=== PATIENT | female | born 1965 | race Caucasian/White ===

== ENCOUNTER 2022-01-08 08:12 | Emergency (ER) | payer OTHER ==
[~2022-01-08] VITALS: Ht 170.2 cm; Wt 53.5 kg
[2022-01-08 09:23] LABS: BASO # 0.1 x10^3/uL (0.0-0.2); BASO % 1 % (0-3); EOS # 0.4 x10^3/uL (0.0-0.7); EOS % 6 % (0-3); HEMATOCRIT 38.5 % (36.0-47.0); LYMPH # 1.4 x10^3/uL (1.0-4.8); LYMPH % 24 % (24-48); MEAN CORPUSCULAR HEMOGLOBIN 29 pg (25-35); MEAN CORPUSCULAR HGB CONC 34 g/dL (31-37); MEAN CORPUSCULAR VOLUME 87 fL (79-100); MONO # 0.5 x10^3/uL (0.0-1.1); MONO % 8 % (0-9); NEUT # 3.7 x10^3/uL (1.8-7.7); NEUT % 61 % (31-73); PLATELET COUNT 382 x10^3/uL (140-400); RED BLOOD COUNT 4.41 x10^6/uL (3.50-5.40); RED CELL DISTRIBUTION WIDTH 13.6 % (11.5-14.5)
[2022-01-08] MEDS ORDERED: IOHEXOL 300 MG/ML 100ML VIAL. IV ONE (09:30)
[2022-01-08 09:36] LABS: CALCIUM 9.3 mg/dL (8.5-10.1); GFR 57.4; POTASSIUM 3.6 mmol/L (3.5-5.1)
[2022-01-08 09:40] LABS: AMORPHOUS SEDIMENT,UR PRESENT /HPF; BACTERIA,URINE MODERATE /HPF (0-FEW); HYALINE CASTS, URINE MANY /HPF
[2022-01-08 09:42] LABS: ALBUMIN 4.1 g/dL (3.4-5.0); ALBUMIN/GLOBULIN RATIO 1.1 (1.0-1.7); TOTAL BILIRUBIN 0.5 mg/dL (0.2-1.0); TOTAL PROTEIN 7.7 g/dL (6.4-8.2)
[2022-01-08] MEDS ORDERED: IOHEXOL 240 MG/ML 50ML VIAL. PO ONE (09:45)
[2022-01-08] MEDS ORDERED: CONTRAST GIVEN. MC PRN (09:45)
--- NOTE | 2022-01-08 11:35 | RAD ---
CT ABDOMEN+PELVIS W dated 01/08/2022 9:54 AM Indication:Reason: LUQ pain, hx of diverticulosis / Spl. Instructions: Omni 300 60Ml,Phxq263 30ml / H istory: Comparison: CT 01/01/2022. Technique: CT images were made through the abdomen and pelvis following oral contrast ingestion and u sing an infusion of 60 mL Omnipaque 300. One or more of the following individualized dose reduction techniques were utilized for this examinat ion: 1. Automated exposure control 2. Adjustment of the mA and/or kV according to patient size 3. Use of iterative reconstruction technique Findings: Lung bases are clear. The liver and spleen are homogeneous in density and normal in configuration. Kane th kidneys enhance with contrast. Tiny cysts are seen on the left. There is no apparent solid mass or obstruction. The adrenal glands are not enlarged. The pancreas appears normal. No retroperitoneal or mesenteric adenopathy is seen. There is no apparent abdominal mass or inflammatory process. There is diverticulosis of the left colon without apparent diverticulitis. Images through the pelvis show no apparent abnormality of the distal ureters or bladder. The bladder was not well distended. No pelvic or inguinal adenopathy is seen. Uterus and adnexal areas appear nor mal for age. There is no separate pelvic mass or inflammatory process. There is some diverticulosis o f the sigmoid colon without apparent diverticulitis. IMPRESSION: No apparent acute abnormality. Electronically signed by: Timothy Doss Jr., MD (01/08/2022 11:33 AM) [facility]
[2022-01-08 14:19] LABS: BACTERIA,URINE 0 /HPF (0-FEW)
[2022-01-08] MEDS ORDERED: MAGN296S68 PO (14:43)
[2022-01-08] MEDS ORDERED: POLY17PO29 PO (14:43)
--- NOTE | 2022-01-08 14:43 | PHYS DOC ---
Past Medical History Past Surgical History: No Surgical History, Appendectomy, Tonsillectomy, Other Additional Past Surgical Histo: CYST REMOVED FROM OVARY Smoking Status: Never Smoker Alcohol Use: Occasionally General Adult EDM: Chief Complaint: ABDOMINAL PAIN HPI: HPI: 56-year-old female presents with pain in the left upper quadrant of her abdomen. No dysuria urgency or frequency. No vomiting or nausea. Onset of pain over a week ago. Was seen at an outside ER about a week ago and had a CT which showed diverticulosis. Saw her PCP who placed her on antibiotics yesterday. He advised her to come to the ER if anything worsens. She came in today because now her left upper quadrant abdominal pain feels worse. She denies feeling constipated. No blood in her stool. Had an appendectomy a long time ago. No other surgeries in the abdomen. Otherwise eating and drinking normally. No chest pain or shortness of breath. The pain is not pleuritic in nature. Review of Systems: Review of Systems: Constitutional: Denies fever or chills. [] Eyes: Denies change in visual acuity. [] HENT: Denies nasal congestion or sore throat. [] Respiratory: Denies cough or shortness of breath. [] Cardiovascular: Denies chest pain or edema. [] GI: Left upper quadrant abdominal pain : Denies dysuria. [] Musculoskeletal: Denies back pain or joint pain. [] Integument: Denies rash. [] Neurologic: Denies headache, focal weakness or sensory changes. [] Endocrine: Denies polyuria or polydipsia. [] Lymphatic: Denies swollen glands. [] Psychiatric: Denies depression or anxiety. [] Heart Score: C/O Chest Pain: No Risk Factors: Risk Factors: DM, Current or recent (<one month) smoker, HTN, HLP, family history of CAD, obesity. Risk Scores: Score 0 - 3: 2.5% MACE over next 6 weeks - Discharge Home Score 4 - 6: 20.3% MACE over next 6 weeks - Admit for Clinical Observation Score 7 - 10: 72.7% MACE over next 6 weeks - Early Invasive Strategies Current Medications: Current Medications Medications (Trade) Dose Ordered Sig/Todd Start Time Stop Time Status Last Admin Dose Admin Info (CONTRAST GIVEN -- Rx MONITORING) 1 each PRN DAILY PRN 01/08/22 09:45 01/10/22 09:44 Iohexol (Omnipaque 240 Mg/ml) 50 ml 1X ONCE 01/08/22 09:45 01/08/22 09:46 DC 01/08/22 09:45 50 ML Iohexol (Omnipaque 300 Mg/ml) 75 ml 1X ONCE 01/08/22 09:30 01/08/22 09:33 DC 01/08/22 09:30 75 ML Allergies: Allergies: Allergies Coded Allergies Type Severity Reaction Last Updated Verified No Known Drug Allergies 01/08/22 No Physical Exam: PE: Constitutional: Well developed, well nourished, no acute distress, non-toxic appearance. [] HENT: Normocephalic, atraumatic, bilateral external ears normal, oropharynx moist, no oral exudates, nose normal. [] Eyes: PERRLA, EOMI, conjunctiva normal, no discharge. [] Neck: Normal range of motion, no tenderness, supple, no stridor. [] Cardiovascular:Heart rate regular rhythm, no murmur [] Lungs & Thorax: Bilateral breath sounds clear to auscultation [] Abdomen: No tenderness to palpation throughout the abdomen however the abdomen feels slightly distended Skin: Warm, dry, no erythema, no rash. [] Back: No tenderness, no CVA tenderness. [] Extremities: No tenderness, no cyanosis, no clubbing, ROM intact, no edema. [] Neurologic: Alert and oriented X 3, normal motor function, normal sensory function, no focal deficits noted. [] Psychologic: Affect normal, judgement normal, mood normal. [] Current Patient Data: Labs: Laboratory Tests Test 01/08/22 09:12 01/08/22 14:00 White Blood Count 6.0 x10^3/uL (4.0-11.0) Red Blood Count 4.41 x10^6/uL (3.50-5.40) Hemoglobin 13.0 g/dL (12.0-15.5) Hematocrit 38.5 % (36.0-47.0) Mean Corpuscular Volume 87 fL (79-100) Mean Corpuscular Hemoglobin 29 pg (25-35) Mean Corpuscular Hemoglobin Concent 34 g/dL (31-37) Red Cell Distribution Width 13.6 % (11.5-14.5) Platelet Count 382 x10^3/uL (140-400) Neutrophils (%) (Auto) 61 % (31-73) Lymphocytes (%) (Auto) 24 % (24-48) Monocytes (%) (Auto) 8 % (0-9) Eosinophils (%) (Auto) 6 % (0-3) H Basophils (%) (Auto) 1 % (0-3) Neutrophils # (Auto) 3.7 x10^3/uL (1.8-7.7) Lymphocytes # (Auto) 1.4 x10^3/uL (1.0-4.8) Monocytes # (Auto) 0.5 x10^3/uL (0.0-1.1) Eosinophils # (Auto) 0.4 x10^3/uL (0.0-0.7) Basophils # (Auto) 0.1 x10^3/uL (0.0-0.2) Urine Collection Type Unknown Void Urine Color (Auto) Yellow Light yellow Urine Turbidity Hazy Clear Urine pH (Auto) 5.5 (<5.0-8.0) 6.5 (<5.0-8.0) Urine Specific [place]orn 1.028 (1.000-1.030) >1.050 (1.000-1.030) Urine Protein (Auto) 50 mg/dL (Negative) Negative mg/dL (Negative) Urine Glucose (Auto)(UA) Negative mg/dL (Negative) Negative mg/dL (Negative) Urine Ketones (Auto) Trace mg/dL (Negative) Negative mg/dL (Negative) Urine Blood (Auto) Small (Negative) Moderate (Negative) Urine Nitrite Negative (Negative) Negative (Negative) Urine Bilirubin (Auto) Negative (Negative) Negative (Negative) Urine Urobilinogen (Auto) 2 mg/dL (Normal) Normal mg/dL (Normal) Urine Leukocyte Esterase (Auto) Large (Negative) Negative (Negative) Urine RBC 1-2 /HPF (0-2) 1-2 /HPF (0-2) Urine WBC 5-10 /HPF (0-4) 1-4 /HPF (0-4) Urine Squamous Epithelial Cells Many /LPF Few /LPF Urine Transitional Epithelial Cells Few /LPF Urine Amorphous Sediment Present /HPF Urine Bacteria Moderate /HPF (0-FEW) 0 /HPF (0-FEW) Urine Hyaline Casts Many /HPF Urine Mucus Marked /LPF Sodium Level 142 mmol/L (136-145) Potassium Level 3.6 mmol/L (3.5-5.1) Chloride Level 102 mmol/L (98-107) Carbon Dioxide Level 32 mmol/L (21-32) Anion Gap 8 (6-14) Blood Urea Nitrogen 25 mg/dL (7-20) H Creatinine 1.0 mg/dL (0.6-1.0) Estimated GFR (Cockcroft-Gault) 57.4 BUN/Creatinine Ratio 25 (6-20) H Glucose Level 97 mg/dL (70-99) Calcium Level 9.3 mg/dL (8.5-10.1) Total Bilirubin 0.5 mg/dL (0.2-1.0) Aspartate Amino Transferase (AST) 19 U/L (15-37) Alanine Aminotransferase (ALT) 18 U/L (14-59) Alkaline Phosphatase 102 U/L (46-116) Troponin I High Sensitivity < 4 ng/L (4-50) L Total Protein 7.7 g/dL (6.4-8.2) Albumin 4.1 g/dL (3.4-5.0) Albumin/Globulin Ratio 1.1 (1.0-1.7) Lipase 60 U/L (73-393) L Laboratory Tests 01/08/22 09:12 Laboratory Tests 01/08/22 09:12 Vital Signs: Vital Signs Date Time Temp Pulse Resp B/P (MAP) Pulse Ox O2 Delivery O2 Flow Rate FiO2 01/08/22 08:46 97.6 63 18 116/57 (76) 99 Room Air 97.6 EKG: EKG: [] Radiology/Procedures: Radiology/Procedures: [] Course & Med Decision Making: Course & Med Decision Making CT scan done with oral contrast which does not show any diverticulitis. However her colon is filled with stool and therefore I believe her to be significantly constipated. We will place her on a laxative regimen and have her follow-up. Lab work otherwise unremarkable Nadia Disclaimer: Nadia Disclaimer: This electronic medical record was generated, in whole or in part, using a voice recognition dictation system. Departure Departure Impression: Primary Impression: Constipation Disposition: HOME / SELF CARE / HOMELESS Condition: STABLE Referrals: MAYCOL ONOFRE MD (PCP) Patient Instructions: Constipation, Adult Scripts Polyethylene Glycol 3350 (MIRALAX) 17 Gm Powd.pack 1 PKT PO DAILY for 28 Days, #28 PKT Prov: SESAR BERRY MD 01/08/22 Magnesium Citrate (MAGNESIUM CITRATE) 296 Ml Solution 296 ML PO ONCE, #296 ML Drink half a bottle every 12 hours as needed for constipation Prov: SESAR BERRY MD 01/08/22 SESAR BERRY MD January 08, 2022 14:43
[2022-01-08 14:46] VITALS: BP 148/72
--- NOTE | 2022-01-08 20:20 | EKG ---
[facility] [address] [place] [address] Test Date: 2022-01-08 Test Time: 08:58:01 Pat Name: DYLAN PICKENS Department: Room: Gender: F Insurance Professional: : [id number] Requested By: SESAR BERRY Order Number: [id number] Reading MD: Jose Newman MD Measurements Intervals [place] Rate: 64 P: 49 SD: 182 QRS: 59 QRSD: 82 T: 61 QT: 436 QTc: 449 Interpretive Statements SINUS RHYTHM Electronically Signed On 01-09-2022 8:52:15 CDT by Jose Newman MD
== END 2022-01-08 14:53 | disposition home or self-care (01) ==
LOC: ER 08:12
DX: K59.00 Constipation, unspecified (principal); Z90.89 Acquired absence of other organs
CPT/HCPCS: 36415; 74177; 80053; 81001; 83690; 84484; 85025; 87077; 87086; 93005; 99285; Q9966; Q9967